=== PATIENT | male | born 1955 | race Caucasian/White ===

== ENCOUNTER 2018-04-03 10:18 | Outpatient (CLI) | payer BC ==
--- NOTE | 2018-04-03 11:07 | RAD ---
LUMBAR SPINE THREE VIEWS: HISTORY: Intervertebral disk degeneration. Low back pain. COMPARISON: None. FINDINGS: AP, lateral neutral, lateral flexion, and lateral extension views of the lumbar spine demonstrate fiv e lumbar type vertebral bodies. Vertebral body height is maintained. Disk space height is preserved . Mild osteophyte formation. No spondylolisthesis in the neutral position. No spondylosis. No abn ormal motion upon flexion or extension. IMPRESSION: No significant degenerative change. POS: ANDRÉS
== END 2018-04-03 10:19 | disposition home or self-care (01) ==
LOC: TBSIIMAG 10:18
PROVIDERS: ATTEND Neurological Surgery
DX: M51.36 Other intervertebral disc degeneration, lumbar region (principal)
CPT/HCPCS: 72110